=== PATIENT | female | born 1940 | race Caucasian/White ===

== ENCOUNTER 2017-10-16 06:41 | Day surgery (SDC) | payer OTHER | END 2017-10-16 11:25 | disposition home or self-care (01) | LOC: AMB-ENDOS 06:41 → ADM 12:30 → AMB-ENDOS 12:30 | DX: D12.3 Benign neoplasm of transverse colon (principal); K57.30 Diverticulosis of large intestine without perforation or abscess without bleeding; K64.8 Other hemorrhoids ==

== ENCOUNTER 2022-03-14 08:00 | Day surgery (SDC) | payer OTHER | END 2022-03-14 12:45 | disposition home or self-care (01) | LOC: CIR.AMB 08:00 | PROVIDERS: ATTEND Colon & Rectal Surgery | DX: K57.30 Diverticulosis of large intestine without perforation or abscess without bleeding (principal); Z20.822 Contact with and (suspected) exposure to COVID-19; Z86.010 Personal history of colon polyps; K64.4 Residual hemorrhoidal skin tags ==